=== PATIENT | female | born 1960 | race African-American/Black ===

== ENCOUNTER 2016-05-27 10:54 | Emergency (ER) | payer MEDICAID ==
[2016-05-27 12:11] VITALS: BP 112/66
--- NOTE | 2016-05-27 13:05 | UC ---
Throat Pain/Nasal Maikel HPI - HPI Summary HPI Summary: C/o sore throat, nasal congestion, and headache for over a week. here with her aid Teodora. + copd. has nebulizer and uses prn. has not used recently for this. normally gets treated with amoxicillin for this with good results. no fever. no wheezing. - History of Current Complaint Chief Complaint: UCRespiratory Stated Complaint: SORE THROAT,SINUS, EAR PAIN Time Seen by Provider: 05/27/16 13:04 - Allergies/Home Medications Allergies/Adverse Reactions: Allergies Allergy/AdvReac Type Severity Reaction Status Date / Time No Known Allergies Allergy Verified 05/27/16 13:15 Home Medications: Home Medications Albuterol Sulfate [Proair Respiclick] 108 mcg IN Q4HR PRN 05/27/16 [History Confirmed 05/27/16] Alendronate Sodium [Alendronate Sodium-] 10 mg PO WEEKLY 05/27/16 [History Confirmed 05/27/16] Amiodarone HCl [Amiodarone HCl-] 200 mg PO DAILY 05/27/16 [History Confirmed 05/01] Docusate CAP* [Colace Cap*] 100 mg PO DAILY 05/27/16 [History Confirmed 05/27/16 ] Fluticasone HFA 110 mcg(NF) [Flovent HFA 110 mcg(NF)] 1 puff INH BID 05/27/16 [ History Confirmed 05/27/16] Furosemide TAB* [Lasix TAB*] 40 mg PO BID 05/27/16 [History Confirmed 05/27/16] Magnesium Oxide (mg Supplement [Magox 400-] 400 mg PO BID 05/27/16 [History Confirmed 05/27/16] Metformin ER (NF) 500 mg PO BID 05/27/16 [History Confirmed 05/27/16] PARoxetine HCL TAB* [Paxil TAB*] 40 mg PO DAILY 05/27/16 [History Confirmed 05/01] Potassium Chlor TAB* [Klor Con ER TAB*] 20 meq PO BID 05/27/16 [History Confirmed 05/27/16] Simvastatin [Zocor 40 MG (NF)] 80 mg PO QPM 05/27/16 [History Confirmed 05/27/16 ] Spironolactone [Aldactone 25 MG-] 12.5 mg PO DAILY 05/27/16 [History Confirmed 05/27/16] Warfarin TAB(*) [Coumadin TAB(*)] 5 mg PO QPM 05/27/16 [History Confirmed ] guaiFENesin ER TAB [Mucinex*] 600 mg PO BID 05/27/16 [History Confirmed 05/27/16 ] PMH/Surg Hx/FS Hx/Imm Hx Previously Healthy: Yes Endocrine History Of: Reports: Diabetes Cardiovascular History Of: Reports: Atrial Fibrillation Respiratory History Of: Reports: COPD - Surgical History Surgical History: Yes Surgery Procedure, Year, and Place: hysterectomy - Family History Known Family History: Positive: Cardiac Disease - Social History Alcohol Use: None Substance Use Type: None Smoking Status (MU): Former Smoker Review of Systems Constitutional: Negative Skin: Negative Eyes: Negative ENT: Sore Throat, Nasal Discharge Respiratory: Cough Cardiovascular: Negative Gastrointestinal: Negative Genitourinary: Negative Motor: Negative Neurovascular: Negative Musculoskeletal: Negative Neurological: Negative Psychological: Negative All Other Systems Reviewed And Are Negative: Yes Physical Exam Triage Information Reviewed: Yes Appearance: Well-Appearing, No Pain Distress, Well-Nourished - very pleasant Vital Signs: Initial Vital Signs Temp 98.0 F 05/27/16 12:07 Pulse 68 05/27/16 12:07 Resp 16 05/27/16 12:07 BP 112/66 05/27/16 12:07 Pulse Ox 98 05/27/16 12:07 Vital Signs Reviewed: Yes Eye Exam: Normal ENT Exam: Normal ENT: Positive: Pharynx normal - +PND, no erythema or exudate, Nasal congestion Respiratory: Positive: No respiratory distress, No accessory muscle use, Decreased breath sounds, Wheezing - mild expiratory. Negative: Crackles, Rhonchi, Stridor Cardiovascular Exam: Normal Cardiovascular: Positive: No Murmur, Pulses Normal, Brisk Capillary Refill, Other: - irregularly irregular Abdominal Exam: Normal Abdomen Description: Positive: Nontender, Soft Bowel Sounds: Positive: Present Musculoskeletal Exam: Normal Neurological Exam: Normal Psychological Exam: Normal Skin Exam: Normal Throat Pain/Nasal Course/Dx - Differential Dx/Diagnosis Differential Diagnosis/HQI/PQRI: Pharyngitis, Sinusitis, URI, Other - copd, bronchitis Provider Diagnoses: copd exacerbation Discharge - Discharge Plan Condition: Stable Disposition: HOME Prescriptions: Amoxicillin (*) 875 mg PO BID #20 tab Amoxicillin (*) 875 mg PO BID #20 tab Patient Education Materials: COPD (Chronic Obstructive Pulmonary Disease) (ED) Referrals: Patti Bonilla PA [Primary Care Provider] - 4 Days Additional Instructions: Make sure to use the nebulizer with the albuterol every 4-6 hrs until your symptoms have resolved.
== END 2016-05-27 13:42 | disposition home or self-care (01) ==
LOC: UCCORT 10:54
DX: J44.1 Chronic obstructive pulmonary disease with (acute) exacerbation (principal); I48.91 Unspecified atrial fibrillation; Z79.01 Long term (current) use of anticoagulants; E11.9 Type 2 diabetes mellitus without complications; Z79.84 Long term (current) use of oral hypoglycemic drugs; Z87.891 Personal history of nicotine dependence
CPT/HCPCS: 99211; G0463

== ENCOUNTER 2018-01-27 11:21 | Emergency (ER) | payer MEDICAID ==
[2018-01-27 12:35] VITALS: BP 108/70
--- NOTE | 2018-01-27 13:04 | UC ---
Skin Complaint HPI - HPI Summary HPI Summary: pt is c/o an abscess in L groin x 1 week. had one once before and her pcp drained it. no fever. BS stable, not higher than baseline with this. - History of Current Complaint Chief Complaint: UCSkin Time Seen by Provider: 01/27/18 12:52 Stated Complaint: PERSONAL SKIN COMPLAINT Hx Obtained From: Patient, Family/Human Resource Assistant Onset/Duration: Gradual Onset Timing: Constant Pain Intensity: 0 Aggravating Factor(s): Nothing Alleviating Factor(s): Nothing Associated Signs & Symptoms: Negative: Fever, Chills, Rash - Allergy/Home Medications Allergies/Adverse Reactions: Allergies Allergy/AdvReac Type Severity Reaction Status Date / Time No Known Allergies Allergy Verified 01/27/18 12:36 Review of Systems Constitutional: Negative Skin: Other - abscess L groin Eyes: Negative ENT: Negative Respiratory: Negative Cardiovascular: Negative Gastrointestinal: Negative Genitourinary: Negative Motor: Negative Neurovascular: Negative Musculoskeletal: Negative Neurological: Negative Psychological: Negative All Other Systems Reviewed And Are Negative: Yes PMH/Surg Hx/FS Hx/Imm Hx - Additional Past Medical History Additional PMH: allergies, expressive aphasia, insomnia, cardiomyopathy, chf, v-tach, syncope, CAD Endocrine History: Diabetes, Dyslipidemia Cardiovascular History: Hypertension, Atrial Fibrillation Respiratory History: COPD GI/ History: Gastroesophageal Reflux Neurological History: CVA Psychological History: Anxiety, Depression - Surgical History Surgical History: Yes Surgery Procedure, Year, and Place: hysterectomy - Family History Known Family History: Positive: Cardiac Disease - Social History Occupation: Retired Alcohol Use: None Substance Use Type: None Smoking Status (MU): Former Smoker - Immunization History Vaccination Up to Date: Yes Physical Exam Triage Information Reviewed: Yes Appearance: Well-Appearing Vital Signs: Initial Vital Signs Temp 97.3 F 01/27/18 12:31 Pulse 61 01/27/18 12:31 Resp 16 01/27/18 12:31 BP 108/70 01/27/18 12:31 Pulse Ox 99 01/27/18 12:31 Vital Signs Reviewed: Yes Eyes: Positive: Conjunctiva Clear ENT: Positive: Normal ENT inspection Neck: Positive: Supple, Nontender Respiratory: Positive: Lungs clear, Normal breath sounds Cardiovascular: Positive: RRR, No Murmur Abdomen Description: Positive: Nontender, No Organomegaly, Soft Bowel Sounds: Positive: Present Musculoskeletal: Positive: ROM Intact Neurological: Positive: Alert Psychological: Positive: Age Appropriate Behavior Skin Exam: Normal, Other - suprapubic 3cm area of mild swelling, tenderness but no erythema L side of mons. center is fluctuant. Course/Dx - Course Course Of Treatment: PROCEDURE: TIME OUT. SITE PREP BETADINE. LOCAL WITH 30G NEEDLE. TIP #11 BLADE USED TO MAKE A SUPERFICIAL STAB INCISION, SMALL AMOUNT OF PUSS DRAINED. oNLY SCANT BLEEDING POST. STERILE TECHNIQUE USED. PT TOLERATED WELL. PAD INSIDE UNDERWARE FOR DRESSING POST. - Diagnoses Provider Diagnoses: Suprapubic abscess L mons - I&D Discharge - Sign-Out/Discharge Documenting (check all that apply): Patient Departure All imaging exams completed and their final reports reviewed: No Studies - Discharge Plan Condition: Stable Disposition: HOME Prescriptions: Cephalexin CAP* [Keflex CAP*] 500 mg PO TID 7 Days #21 cap Patient Education Materials: Abscess (ED) Referrals: Waylon Cardona [Medical Doctor] - 3 Days Jessika Yuen MD [Primary Care Provider] - If Needed - Billing Disposition and Condition Condition: STABLE Disposition: Home
[2018-01-27] MEDS ORDERED: Lidocaine 1% MPF* 2 ML VIAL INJ ONE (13:19)
== END 2018-01-27 13:54 | disposition home or self-care (01) ==
LOC: UCCORT 11:21
DX: Z87.891 Personal history of nicotine dependence (principal); L02.215 Cutaneous abscess of perineum
CPT/HCPCS: 10060; 87070; 87205; 87640; 87641; 99212; G0463

== ENCOUNTER 2019-03-13 12:23 | Emergency (ER) | payer MEDICAID ==
[2019-03-13 13:46] VITALS: BP 102/64
--- NOTE | 2019-03-13 13:49 | UC ---
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 Patient states she slept over 's apartment in a twin size bed that she is not used to on Tuesday night and woke up sore yesterday. This pain is worse with walking. Describes as a soreness. Afterschool Babysitter states that she has been walking with a limp favoring her left hip. Denies any specific trauma or injury. Denies numbness or tingling. Denies swelling and bruising. Denies difficulty in relating. Denies decreased range of motion and strength. Patient is a relatively poor historian. - History of Current Complaint Chief Complaint: UCLowerExtremity Stated Complaint: BILATERAL LEG PAIN Hx Obtained From: Patient, Family/Afterschool Babysitter Onset/Duration: Sudden Onset Severity Currently: Mild Pain Intensity: 4 - Allergies/Home Medications Allergies/Adverse Reactions: Allergies Allergy/AdvReac Type Severity Reaction Status Date / Time No Known Allergies Allergy Verified 03/13/19 13:42 Home Medications: Home Medications Aspirin EC TAB* [Ecotrin EC Low Dose 81 MG*] 81 mg PO DAILY 03/13/19 [History Confirmed 03/13/19] Atorvastatin* [Lipitor*] 20 mg PO 1700 03/13/19 [History Confirmed 03/13/19] Carboxymethylcellulos 1% OPTH* [Celluvisc 1% OPTH*] 1 drop BOTH EYES QID [History Confirmed 03/13/19] Metoprolol Tartrate TAB* [Lopressor TAB*] 25 mg PO DAILY 03/13/19 [History Confirmed 03/13/19] Sacubitril/Valsartan [Entresto 24 mg-26 mg Tablet] 1 each PO DAILY 03/13/19 [ History Confirmed 03/13/19] Vitamin B Complex CAP* [B Complex CAP*] 1 cap PO DAILY 03/13/19 [History Confirmed 03/13/19] PMH/Surg Hx/FS Hx/Imm Hx Endocrine History: Diabetes Cardiovascular History: Hypertension Neurological History: CVA - Surgical History Surgical History: Yes Surgery Procedure, Year, and Place: hysterectomy - Family History Known Family History: Positive: Cardiac Disease, Non-Contributory - Social History Alcohol Use: None Substance Use Type: None Smoking Status (MU): Former Smoker - Immunization History Vaccination Up to Date: Yes Review of Systems All Other Systems Reviewed And Are Negative: Yes Constitutional: Positive: Negative. Negative: Fever, Chills Skin: Positive: Negative. Negative: Bruising Respiratory: Positive: Negative Cardiovascular: Positive: Negative Gastrointestinal: Positive: Negative. Negative: Abdominal Pain, Vomiting, Diarrhea, Nausea Genitourinary: Positive: Negative Musculoskeletal: Positive: Arthralgia, Myalgia. Negative: Decreased ROM, Edema Neurological: Positive: Negative Physical Exam Triage Information Reviewed: Yes Completion Of Physical Exam Limited Due To: Other - TBI/stroke Appearance: Well-Appearing, No Pain Distress, Well-Nourished Vital Signs: Initial Vital Signs Temp 98.1 F 03/13/19 13:42 Pulse 64 03/13/19 13:42 Resp 17 03/13/19 13:42 BP 102/64 03/13/19 13:42 Pulse Ox 99 03/13/19 13:42 Vital Signs Reviewed: Yes Eyes: Positive: Conjunctiva Clear ENT: Positive: Hearing grossly normal Neck: Positive: Supple Respiratory Exam: Normal Respiratory: Positive: Lungs clear, Normal breath sounds, No respiratory distress Cardiovascular Exam: Normal Cardiovascular: Positive: RRR, Pulses Normal - Normal pedal and ankle pulses bilaterally Musculoskeletal Exam: Normal Musculoskeletal: Positive: Strength Intact, ROM Intact, No Edema, Other: - diffuse, nonspecific tenderness to light palpation of entire anterior thighs b/ l. Observed patient walking with a limp favoring her left leg Neurological: Positive: Alert Psychological: Positive: Age Appropriate Behavior Skin Exam: Normal - no erythema or eccymosis Diagnostics - Radiology BL hip xray Radiology Interpretation Completed By: Radiologist Summary of Radiographic Findings: IMPRESSION: MILD BILATERAL OSTEOARTHRITIC CHANGE IN THE HIPS. Lower Extremity Course/Dx - Course Course Of Treatment: Discussed osteoarthritis finding in bilateral hips with patient and boat cleaning supervisor. Instructed to continue symptomatic treatment including rest and Tylenol. Instructed to follow up with PCP if pain symptoms persist. Instructed to go to ED if pain worsens. Patient and boat cleaning supervisor voiced understanding and agreed with the treatment plan. Patient was poor historian with contradicting symptoms throughout interview and vague history not including any injury or trauma. Patient normally walks with a walker. She walked with a limp during physical examination but I observed normal gait while she was walking to and from radiology. Vital signs were normal and patient was in no pain distress throughout interview. - Differential Dx/Diagnosis Provider Diagnosis: Bilateral hip pain Discharge ED - Sign-Out/Discharge Documenting (check all that apply): Patient Departure All imaging exams completed and their final reports reviewed: Yes - Discharge Plan Condition: Stable Disposition: HOME Patient Education Materials: Hip Pain (ED) Referrals: Jessika Yuen MD [Primary Care Provider] - If Needed Additional Instructions: As discussed, the xrays of the hips showed osteoartritis. Rest and ice to help relieve pain. You may also continue to use tylenol as directed for relief of pain. If pain does not resolve, follow up with your PCP as listed below. Go to the emergency room if pain worsens, the legs become cold and numb, or you are not able to bear weight. - Billing Disposition and Condition Condition: STABLE Disposition: Home - Attestation Statements Provider Attestation: I was available for consult. This patient was seen by the DAVIS. The patient was not presented to, seen by, or examined by me. -Sarah
== END 2019-03-13 14:34 | disposition home or self-care (01) ==
LOC: UCCORT 12:23
DX: M25.551 Pain in right hip (principal); M25.552 Pain in left hip; M16.0 Bilateral primary osteoarthritis of hip; I63.9 Cerebral infarction, unspecified; I10 Essential (primary) hypertension; E11.9 Type 2 diabetes mellitus without complications; Z87.891 Personal history of nicotine dependence; Z79.82 Long term (current) use of aspirin; Z79.899 Other long term (current) drug therapy
CPT/HCPCS: 73523; 99211; G0463